=== PATIENT | female | born 1990 | race Caucasian/White ===

== ENCOUNTER → 2019-11-22 15:15 | Outpatient (CLI) | payer OTHER, SELFPAY ==
[2019-11-22 15:39] LABS: Add Manual Diff / Slide Review NO; Basophils Absolute Auto 100 /uL (0-100); Basophils Percent Auto 0.6 % (0-2); Eosinophils Absolute Auto 100 /uL (0-450); Eosinophils Percent Auto 0.9 % (2-4); Hematocrit 38.2 % (36-46); Hemoglobin 12.7 g/dL (12.0-16.0); Lymphocytes Absolute Auto 1800 /uL (1100-4500); Lymphocytes Percent Auto 18.4 % (25-40); Mean Corpuscular HGB Conc 33.3 % (30-36); Mean Corpuscular Hemoglobin 30.1 PG (26-34); Mean Corpuscular Volume 90.2 fL (80-100); Monocytes Absolute Auto 800 /uL (0-900); Monocytes Percent Auto 7.9 % (3-14); Neutrophils Absolute Auto 7200 /uL (1500-7000); Neutrophils Percent Auto 72.2 % (50-75); Platelet Count 363 X10^3/uL (150-400); Red Blood Cell Count 4.23 X10^6/uL (4.0-5.2); Red Cell Distribution Width 14.6 % (11.6-14.8)
[2019-11-22 15:46] LABS: Appearance Urine UA CLEAR; Bilirubin Urine UA NEGATIVE (NEGATIVE); Color Urine UA YELLOW; Glucose Urine UA NEGATIVE (Negative); Ketones Urine UA NEGATIVE (NEGATIVE); Leukocyte Esterase Urine UA NEGATIVE (NEGATIVE); Nitrite Urine UA NEGATIVE (Negative); Occult Blood Urine UA NEGATIVE (Negative); Protein Urine UA NEGATIVE (Negative); Urobilinogen Urine UA 0.2 E.U./dL (0.2)
[2019-11-23 08:39] LABS: RPR Screen Non Reactive (Non Reactive); Varicella IgG Antibody <135 index (Immune >165)
[2019-11-25 14:42] LABS: HIV 1 & 2 Ab/Ag 4th Gen Combo NEGATIVE (NEGATIVE); Hep C Virus Ab w/Reflex Quant NEGATIVE s/c (NEGATIVE); Hepatitis B Surface Antigen NEGATIVE s/c (NEGATIVE); Rubella Antibody IgG 10.1 IU/mL (>15)
== END ==
PROVIDERS: PCP Physician Assistant; Referring Provider Specialist; Visit Provider Specialist
DX: Z34.01 Encounter for supervision of normal first pregnancy, first trimester (principal)
CPT/HCPCS: 36415; 80055; 81003; 86787; 86803; 86850; 86900; 86901; 87086; 87389

== ENCOUNTER → 2020-01-24 15:11 | Outpatient (CLI) | payer OTHER, SELFPAY ==
[2020-01-28 20:39] LABS: Calc Gestational Age Ultrasound (.); Estriol, Free 1.03 ng/mL (.); Inhibin A, Dimeric 103.84 pg/mL (.); Inhibin A, MoM 0.72 (.); Maternal Ethnicity Caucasian (.); Maternal Weight 188 lbs (.); Number of Fetuses No (.); OSBR Risk 1 IN 5251 (.); Results Report (.); Test Results *Screen Negative* (.); hCG, MoM 1.29 (.); hCG, Serum 35173 mIU/mL (.)
== END ==
PROVIDERS: PCP Physician Assistant; Referring Provider Specialist; Visit Provider Specialist
DX: Z34.82 Encounter for supervision of other normal pregnancy, second trimester (principal); Z3A.17 17 weeks gestation of pregnancy
CPT/HCPCS: 36415; 82105; 82677; 84702; 86336

== ENCOUNTER → 2020-02-21 10:10 | Outpatient (CLI) | payer OTHER, SELFPAY ==
--- NOTE | 2020-02-21 10:11 | DI.US.S_ITS ---
PROCEDURE: US OB >= 14 WEEKS FETUS INDICATIONS: ANATOMY SCAN OUTSIDE/PRIOR DATING DATA: Last menstrual period (LMP): 09/19/19. LMP-based estimated date of delivery (ODALIS): 06/25/20. First dating scan (date and location): 02/21/20. Estimated date of delivery (ODALIS) from first dating scan: 07/02/20. TECHNIQUE: Real-time scanning was performed of the fetus, with image documentation and biometric measurements. COMPARISON: [facility], , OB >= 14 WEEKS FETUS, 01/24/2020, 14:49. FINDINGS: General: A single living intrauterine gestation is present. Presentation: Breech Placenta: Placental position is posterior, with inferior aspect of the placenta 2.1 cm above the internal cervical os Amniotic fluid index: 10.9 cm, normal range is 5-24 cm. heart rate: 147 beats per minute. Maternal cervical canal: 3.2 cm long. Normal lower limit is 2.5 cm. biometrics: Biparietal diameter: 20 weeks 2 days Head circumference: 21 weeks Abdominal circumference: 21 weeks 4 days Femur length: 21 weeks 4 days Estimated gestational age from initial scan: 22 weeks 1 day Composite gestational age from present scan: 21 weeks 1 day Estimated weight and percentile: 426 g; 15 percentile. Measurement variability for biometric dating: +/- 7 days from 14 weeks to 15 weeks 6 days gestation, +/- 10 days from 16 weeks to 21 weeks 6 days gestation, +/- 2 weeks from 22 weeks to 27 weeks 6 days gestation, +/- 3 weeks for 28 weeks gestation or later. weight reference: 4500 g or EFW >90/95% is considered macrosomia or large for gestational age. EFW <10% is small for gestational age. EFW 5% or less is considered intra-uterine growth restriction. Anatomic survey: Neuro: Ventricles are non-dilated at less than 10 mm. Cisterna magna is normal at 3-11 mm. Cerebellum is normal in size and morphology. Nuchal skin fold: Normal at less than 6 mm between 14-21 weeks gestational age. Face: Nose and lips, facial profile are normal. Spine: No evidence for spina bifida. Heart: 4-chambered heart is present, with normal ventricular outflow tracts. Diaphragm: Diaphragm is intact. Stomach: Left-sided stomach is present. Kidneys: No hydronephrosis. Normal is less than 5 mm in 2nd trimester, less than 7 mm in 3rd trimester. Cord: 3-vessel cord has orthotopic insertion. Bladder: Normal in size. Extremities: All 4 extremities identified. IMPRESSION: 1. Single living with a composite age of 21 weeks 1 day corresponding to ultrasound ODALIS 07/02/20. 2. Normal anatomic survey. Dictated by: Anatoliy Harmon [facility] Interpreted: Raul Lyle MD on 02/21/2020 at 11:29 Approved by: Raul Lyle M.D. on 02/21/2020 at 14:02
== END ==
PROVIDERS: PCP Physician Assistant; Referring Provider Specialist; Visit Provider Specialist
DX: Z34.82 Encounter for supervision of other normal pregnancy, second trimester (principal); Z3A.21 21 weeks gestation of pregnancy
CPT/HCPCS: 76811

== ENCOUNTER → 2020-03-20 12:12 | Outpatient (CLI) | payer OTHER, SELFPAY ==
[2020-03-20 14:18] LABS: Hematocrit 33.7 % (36-46); Hemoglobin 11.4 g/dL (12.0-16.0)
[2020-03-20 14:31] LABS: GTT (PREG) 1 Hour PP 50gm Dose 99 mg/dL (76-139)
== END ==
PROVIDERS: PCP Physician Assistant; Referring Provider Specialist; Visit Provider Specialist
DX: Z34.82 Encounter for supervision of other normal pregnancy, second trimester (principal)
CPT/HCPCS: 36415; 82950; 85014; 85018

== ENCOUNTER → 2020-06-02 10:55 | Outpatient (CLI) | payer OTHER, SELFPAY ==
[2020-06-03 14:22] LABS: Strep Grp B PCR POS for Grp B Strep
== END ==
PROVIDERS: PCP Physician Assistant; Visit Provider Obstetrics & Gynecology
DX: Z34.83 Encounter for supervision of other normal pregnancy, third trimester (principal); Z3A.36 36 weeks gestation of pregnancy
CPT/HCPCS: 87653

== ENCOUNTER 2020-06-18 10:27 | Observation (INO) | payer OTHER, SELFPAY ==
--- NOTE | 2020-06-18 11:03 | DI.US.S_ITS ---
PROCEDURE: US OB BIOPHYSICAL PROFILE INDICATIONS: NEGATIVE NST OUTSIDE/PRIOR DATING DATA: Last menstrual period (LMP): 09/19/19. LMP-based estimated date of delivery (ODALIS): 06/25/20 . First dating scan (date and location): 02/21/20. Estimated date of delivery (ODALIS) from first dating scan: 07/02/20 . TECHNIQUE: Real-time scanning was performed of the fetus for biophysical profile, with image documentation. Color and pulse Doppler interrogation was also performed of the umbilical artery near its insertion into the placenta. COMPARISON: [facility], US, US OB >= 14 WEEKS FETUS, 02/21/2020, 10:33. FINDINGS: General: A single living intrauterine gestation is present. Presentation: Vertex. Placenta: Placental position is left fundal , without previa. Amniotic fluid index: 11.5 cm, normal range is 5-24 cm. heart rate: 145 beats per minute. Maternal cervical canal: Not well seen at late stage of cm long. Estimated gestational age from initial scan: 38 weeks 0 days . Biophysical profile: Tone: 2 points. Movement: 2 points. Respiration: 2 points. Largest pocket of fluid: 2 points. IMPRESSION: 1. Living late 3rd trimester intrauterine . 2. Ultrasound biophysical profile is 8/8. Dictated by: Esteban Mckay M.D. on 06/18/2020 at 11:36 Approved by: Esteban Mckay M.D. on 06/18/2020 at 11:39
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
== END 2020-06-18 13:05 | disposition home or self-care (01) ==
PROVIDERS: Admitting Provider Specialist; PCP Physician Assistant; Referring Provider Specialist; Visit Provider Specialist
DX: O36.8330 Maternal care for abnormalities of the fetal heart rate or rhythm, third trimester, not applicable or unspecified (principal); Z3A.38 38 weeks gestation of pregnancy
CPT/HCPCS: 59025; 59050; 76819; G0378; G0379

== ENCOUNTER 2020-06-21 09:39 | Outpatient (CLI) | payer OTHER, SELFPAY ==
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
== END 2020-06-21 11:00 | disposition home or self-care (01) ==
LOC: OB 06-22 13:58
PROVIDERS: PCP Physician Assistant; Referring Provider Specialist; Visit Provider Specialist
DX: O36.8330 Maternal care for abnormalities of the fetal heart rate or rhythm, third trimester, not applicable or unspecified (principal); Z3A.38 38 weeks gestation of pregnancy
CPT/HCPCS: 59025; G0378; G0379

== ENCOUNTER 2020-06-25 01:00 | Inpatient (IN) | payer OTHER, SELFPAY ==
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
[2020-06-25 01:57] LABS: Add Manual Diff / Slide Review NO; Basophils Absolute Auto 100 /uL (0-100); Basophils Percent Auto 0.8 % (0-2); Eosinophils Absolute Auto 100 /uL (0-450); Eosinophils Percent Auto 1.7 % (2-4); Hematocrit 34.4 % (36-46); Hemoglobin 11.3 g/dL (12.0-16.0); Lymphocytes Absolute Auto 2100 /uL (1100-4500); Lymphocytes Percent Auto 26.2 % (25-40); Mean Corpuscular HGB Conc 32.9 % (30-36); Mean Corpuscular Volume 88.3 fL (80-100); Monocytes Absolute Auto 800 /uL (0-900); Monocytes Percent Auto 9.7 % (3-14); Neutrophils Absolute Auto 4800 /uL (1500-7000); Neutrophils Percent Auto 61.6 % (50-75); Platelet Count 330 X10^3/uL (150-400); Red Cell Distribution Width 14.1 % (11.6-14.8); White Blood Cell Count 7.8 X10^3/uL (4.5-11.0)
[2020-06-25 02:04] LABS: COVID19 -Nasal RAPID Negative (Negative)
[2020-06-25] MEDS: LACTATED RINGERS 1,000 ML 100 ML IV ×3 (02:37→17:14)
[2020-06-25] MEDS: PENICILLIN G POTASSIUM 5,000,000 UNIT in DEXTROSE 5% IN WATER 250 ML IV (02:37)
[2020-06-25 02:46] VITALS: BP 122/79
--- NOTE | 2020-06-25 04:26 | PM.OBPNLAB ---
Date/Time Date Patient Seen: 06/25/20 Time Patient Seen: 04:15 Pain Control Pain control: tolerating well Comments: Patient asleep. VSS. Pelvic Exam Comments: CE deferred Contractions Contractions on admission: irregular Pitocin rate (mU/min): 0 Contraction intensity: Mild Status status: Category l Heart Rate Baseline: 125 Monitor Accelerations: Present Monitor Decelerations: Absent Monitor Variability: Moderate Assessment and Plan Assessment: other Plan: begin patient augmentation Comments: RN unable to start pitocin d/t staffing. Discussed options w/ patiet who is open to misoprostil while waiting. 1 dose misoprostil SL ordered. Reassess in 4 hours or sooner, PRN.
[2020-06-25] MEDS: miSOPROStoL 100 MCG TABLET 50 MCG PO (04:30)
[2020-06-25] MEDS: PENICILLIN G POTASSIUM 3,000,000 UNIT/50 ML FROZ.PIGGY 100 UNIT IV ×5 (07:00→23:07)
[2020-06-25] MEDS: OXYTOCIN PREMIX 30 UNIT/500 ML PLAST..BAG IV (08:38)
[2020-06-25] MEDS: FENT 2MCG/ML BUPIV 0.125% EPI 200 MCG/100 ML PLAST..BAG 12 MCG EPIDURAL ×2 (16:45→21:46)
[2020-06-25] MEDS: ONDANSETRON 4 MG/2 ML INJ (22:34)
[2020-06-26] MEDS: PENICILLIN G POTASSIUM 3,000,000 UNIT/50 ML FROZ.PIGGY 100 UNIT IV (05:00)
[2020-06-26] MEDS: FENT 2MCG/ML BUPIV 0.125% EPI 200 MCG/100 ML PLAST..BAG 12 MCG EPIDURAL (05:40)
--- NOTE | 2020-06-26 06:51 | PM.OBPRVD ---
Events: Labor Augmentation (Pitocin) and Prolonged Rupture of Membrane (Over 27 hours) Labor & Delivery Delivery date: 06/26/20 Intrapartal events: Prolonged 2nd Stage > 2.5 hours (Over 3 hours) Delivery augmentation: pitocin Delivery monitor: external FHT and external uterine Route of delivery: vacuum extraction Indication for instrumentation: maternal exhaustion L&D Laceration Description: Periurethral - 1st Degree and Perineal - 1st Degree Delivery repair: chromic (3 0) Estimated blood loss (mL): 450 Anesthesia type: Epidural Narrative: Patient arrived on Labor and delivery after spontaneous rupture membrane at 3:30 p.m. on 06/25/2020. She did not go into labor and so she received 1 dose Cytotec orally. Pitocin was begun to augment labor. Patient received an epidural catheter for pain control. heart tones category 1 to category 2 throughout labor. The patient had prolonged 3rd stage and due to maternal exhaustion decision was made to do a vacuum assisted vaginal delivery. The vacuum was placed and the infant brought to the perineum with the 1st set of pushes. The was delivered over an intact perineum with the 2nd contraction. The viable female infant was placed on maternal abdomen. After the cord stopped pulsating the cord was clamped, cut, and cord bloods obtained. The placenta delivered spontaneously, intact, with 3 vessels. There were no cervical tears. There is a first-degree perineal tear and a right labial tear that were repaired with 3-0 chromic suture. Both infant and mother doing well. [place] Baby 1: gender: Female Presentation: vertex position: Right Occiput Anterior Placenta delivery description: Spontaneous cord vessel description: 3 Vessels score (1 min): 8 score (5 min): 9 Plan for aftercare: Routine care
[2020-06-26] MEDS: DERMOPLAST SPRAY 20% 60 ML 1 SPRAY TOP (08:57)
[2020-06-26] MEDS: IBUPROFEN 600 MG TABLET PO ×3 (08:58→22:42)
[2020-06-26] MEDS: DOCUSATE 100 MG CAPSULE PO (09:56)
[2020-06-26] MEDS: CITALOPRAM 10 MG TABLET 20 MG PO (09:56)
[2020-06-26] MEDS: PRENATAL VIT,CALC/IRON/FOLIC 1 TABLET 1 TAB PO (09:56)
[2020-06-26] MEDS: HYDROCODONE/ACET 5/325 TABLET 2 TAB PO ×3 (09:58→19:20)
[2020-06-27] MEDS: HYDROCODONE/ACET 5/325 TABLET 2 TAB PO ×3 (00:03→09:54)
[2020-06-27] MEDS: IBUPROFEN 600 MG TABLET PO (04:01)
[2020-06-27 06:41] LABS: Add Manual Diff / Slide Review NO; Basophils Absolute Auto 0 /uL (0-100); Basophils Percent Auto 0.2 % (0-2); Eosinophils Absolute Auto 200 /uL (0-450); Hematocrit 29.9 % (36-46); Lymphocytes Absolute Auto 2000 /uL (1100-4500); Lymphocytes Percent Auto 20.4 % (25-40); Mean Corpuscular HGB Conc 33.3 % (30-36); Mean Corpuscular Hemoglobin 29.5 PG (26-34); Mean Corpuscular Volume 88.6 fL (80-100); Monocytes Absolute Auto 700 /uL (0-900); Neutrophils Absolute Auto 7100 /uL (1500-7000); Neutrophils Percent Auto 70.4 % (50-75); Platelet Count 289 X10^3/uL (150-400); Red Blood Cell Count 3.38 X10^6/uL (4.0-5.2); Red Cell Distribution Width 14.4 % (11.6-14.8); White Blood Cell Count 10.1 X10^3/uL (4.5-11.0)
--- NOTE | 2020-06-27 08:40 | P.DS_ITS ---
Discharge Providers Provider Date of admission: 06/25/20 01:00 Discharge Date: 06/27/20 Primary care physician: Tayla Drake PA-C Consults: 06/25/20 01:40 Consult to Anesthesiology Urgent Comment: Consulting Provider: Anesthesiologist Reason for consultation: Epidural Has provider been notified: No 06/27/20 06:48 Consult to Director Vaccine Routine Comment: Discharge provider: Masha Jalloh MD Summary Hospital Course Date Patient Seen: 06/27/20 Time Patient Seen: 08:40 Procedures: Vacuum assisted vaginal delivery Hospital Course: This patient this is a 30-year-old now para 1 who presented at term with spontaneously ruptured membranes and a closed cervix. She was induced with oral Cytotec and transition to Pitocin. The patient progressed on the Pitocin protocol to fully dilated, and after 3.5 hours 2nd stage, underwent vacuum a ssisted vaginal delivery due to maternal exhaustion. A second-degree perineal laceration was repaired in the usual fashion, and there were no other intrapartum or immediate complications including no signs or symptoms of infection. The patient's recovery was uncomplicated, and she was discharged on day 1. Peripartum Data Infant Delivery Method: Assisted Delivery Laceration Description: Perineal - 2nd Degree complications: none 1: Gender: Female Disposition of : home Status at Discharge Cognitive/behavioral status at discharge: oriented Functional status at discharge: independent ambulation Overall status at discharge: patient is progressing back to baseline Time Spent with Patient Time attestation: Total time spent providing and/or coordinating discharge ser vices: Time spent: Less than 30 minutes Objective Labs Result Diagrams: 06/27/20 06:10 Labs: Laboratory Results - last 24 hr 06/27/20 06:10 WBC 10.1 RBC 3.38 L Hgb 10.0 L Hct 29.9 L MCV 88.6 MCH 29.5 MCHC 33.3 RDW 14.4 Plt Count 289 Neut % (Auto) 70.4 Lymph % (Auto) 20.4 L [place] % (Auto) 7.0 Eos % (Auto) 2.0 Baso % (Auto) 0.2 Neut # (Auto) 7100 H Lymph # (Auto) 2000 [place] # (Auto) 700 Eos # (Auto) 200 Baso # (Auto) 0 Exam Vital Signs (past 8 hours): 127/83, hr 77, t 98.2 F Narrative Exam Narrative: Patient reports feeling well this morning, moderate lochia, good pain control, well, ambulating, voiding, passing flatus, tolerating p.o., no PIH complaints. Patient is taking Motrin and Vicodin for pain control. Const General: cooperative, healthy appearing, comfortable and well developed Resp Effort & Inspection: normal respiratory effort Auscultation: clear to auscultation bilaterally Cardio Rate: regular rate Rhythm: regular rhythm GI Palpation: soft and No tender Other: Fundus firm, well below U External Female Exam: normal external appearance Discharge Plan Discharge Plan Patient Disposition: Home Discharge orders & Medications Prescriptions: New oxycodone 5 mg tablet 5 mg PO Q6H PRN (Reason: pain) Qty: 10 RF: 0 Continued prenat.vits,clarissa,hbj-ulwe-lhzht Tablet 1 tab PO DAILY RF: 0 citalopram 20 mg tablet 20 mg PO DAILY Qty: 30 RF: 6 Follow up/Referrals: Jane Blanco MD [Physician] - (please f/u w/ Dr. Blanco on @ 1:30pm) Diet/Activity/Treatments Diet: Regular Activity: Nothing in the vagina for 6 weeks. Avoid lifting more than 10 lb for 6 weeks. If you have increasing bleeding, fevers, chills, nausea, vomiting, h eadaches, visual changes, or any other symptoms or concerns, call or come to the emergency room. Skin/Wound/Dressing Care Report to your healthcare provider any signs of infection, such as:: chills, fever, night sweats, increased pain, unusual drainage and unusual redness Visit Report/Discharge Packet Instructions: Labor and Delivery, Vaginal Stand Alone Forms: Discharge: Care Discharge Data Primary Care Provider: Tayla Drake
[2020-06-27] MEDS: CITALOPRAM 10 MG TABLET 20 MG PO (08:48)
[2020-06-27] MEDS: DOCUSATE 100 MG CAPSULE PO (08:48)
[2020-06-27] MEDS: PRENATAL VIT,CALC/IRON/FOLIC 1 TABLET 1 TAB PO (08:48)
[2020-06-27 09:45] VITALS: BP 129/78; PULSE 78; RESP 17; TEMP 37
[2020-06-27 09:54] VITALS: TEMP 37.1
[2020-06-27] MEDS: MEASLES,MUMPS,RUBELLA VACC/PF 0.5 ML VIAL SUBCUT (09:57)
== END 2020-06-27 10:30 | disposition home or self-care (01) | DRG 807 ==
PROVIDERS: Specialist; Admitting Provider Nurse Practitioner Obstetrics & Gynecology; PCP Physician Assistant; Referring Provider Nurse Practitioner Obstetrics & Gynecology; Visit Provider Nurse Practitioner Obstetrics & Gynecology
DX: O42.12 Full-term premature rupture of membranes, onset of labor more than 24 hours following rupture (principal); Z37.0 Single live birth; O63.1 Prolonged second stage (of labor); O75.81 Maternal exhaustion complicating labor and delivery; O99.824 Streptococcus B carrier state complicating childbirth; Z3A.39 39 weeks gestation of pregnancy; O71.82 Other specified trauma to perineum and vulva; O70.0 First degree perineal laceration during delivery; Z11.59 Encounter for screening for other viral diseases
CPT/HCPCS: 01967; 36415; 59050; 59200; 59400; 84112; 85025; 86850; 86900; 86901; 87635; G0379; J2405; J2540; J2590

== ENCOUNTER → 2020-07-31 11:28 | Outpatient (CLI) | payer OTHER, SELFPAY ==
[2020-07-31 12:57] LABS: Clostridium Difficile Tox PCR Negative for C. diff
== END ==
PROVIDERS: PCP Physician Assistant; Referring Provider Specialist; Visit Provider Specialist
DX: R19.7 Diarrhea, unspecified (principal)
CPT/HCPCS: 87493

== ENCOUNTER → 2021-03-16 09:54 | Outpatient (CLI) | payer OTHER, SELFPAY ==
[2021-03-16 20:42] LABS: COVID19 - ORCAS (NP or Nasal) Negative (Negative)
== END ==
PROVIDERS: PCP Physician Assistant; Visit Provider Physician Assistant
DX: Z20.822 Contact with and (suspected) exposure to COVID-19 (principal)
CPT/HCPCS: U0003

== ENCOUNTER → 2024-12-04 09:49 | Outpatient (CLI) | payer OTHER, MEDICAID, SELFPAY ==
[2024-12-04 19:11] LABS: Add Manual Diff / Slide Review NO; Basophils Absolute Auto 0 /uL (0-100); Basophils Percent Auto 0.2 % (0-2); Eosinophils Absolute Auto 200 /uL (0-450); Eosinophils Percent Auto 3.6 % (2-4); Hematocrit 38.5 % (36-46); Hemoglobin 12.8 g/dL (12.0-16.0); Lymphocytes Absolute Auto 2000 /uL (1100-4500); Mean Corpuscular HGB Conc 33.3 % (30-36); Mean Corpuscular Hemoglobin 29.2 PG (26-34); Mean Corpuscular Volume 87.7 fL (80-100); Monocytes Absolute Auto 300 /uL (0-900); Monocytes Percent Auto 7.1 % (3-14); Neutrophils Absolute Auto 2100 /uL (1500-7000); Neutrophils Percent Auto 45.1 % (50-75); Platelet Count 304 X10^3/uL (150-400); Red Blood Cell Count 4.39 X10^6/uL (4.0-5.2); Red Cell Distribution Width 15.1 % (11.6-14.8); White Blood Cell Count 4.6 X10^3/uL (4.5-11.0)
[2024-12-04 19:30] LABS: Alanine Aminotransferase 23 IU/L (<35); Albumin 4.2 g/dL (3.5-5.0); Albumin Globulin Ratio 1.8 (1.0-2.8); Alkaline Phosphatase 50 U/L (38-126); Aspartate Aminotransferase 27 IU/L (14-36); BUN Creatinine Ratio 15.7 (6-22); Bilirubin Total 0.3 mg/dL (0.2-1.3); Blood Urea Nitrogen 11 mg/dL (7-17); Calcium 8.9 mg/dL (8.4-10.2); Carbon Dioxide 28 mmol/L (22-32); Chloride 103 mmol/L (98-107); Cholesterol 219 mg/dL (140-199); Estimated Glomerular Filt Rate > 60 mL/min (>60); Globulin 2.4 g/dL (1.7-4.1); Glucose 86 mg/dL (70-99); HDL Cholesterol 58 mg/dL (40-60); HEMOLYSIS < 15 (0-50); LDL Cholesterol Calculated 145 mg/dL (<100); Potassium 4.6 mmol/L (3.4-5.1); Sodium 135 mmol/L (137-145); Total Protein 6.6 g/dL (6.3-8.2); Triglycerides 78 mg/dL (35-150)
[2024-12-04 19:56] LABS: TSH w/ Reflex to FT4 2.67 uIU/mL (0.47-4.68)
== END ==
PROVIDERS: PCP Physician Assistant Medical; Visit Provider Physician Assistant Medical
DX: Z13.29 Encounter for screening for other suspected endocrine disorder (principal); Z13.0 Encounter for screening for diseases of the blood and blood-forming organs and certain disorders involving the immune mechanism; Z13.1 Encounter for screening for diabetes mellitus; Z13.6 Encounter for screening for cardiovascular disorders
CPT/HCPCS: 80053; 80061; 84443; 85025

== ENCOUNTER → 2025-05-06 15:01 | Outpatient (CLI) | payer OTHER, SELFPAY | PROVIDERS: PCP Physician Assistant Medical; Visit Provider Physician Assistant Medical | DX: R30.0 Dysuria (principal) | CPT/HCPCS: 87086 ==

== ENCOUNTER → 2025-06-09 08:59 | Outpatient (CLI) | payer OTHER, SELFPAY ==
[2025-06-09 19:14] LABS: Add Manual Diff / Slide Review NO; Hematocrit 38.4 % (36-46); Hemoglobin 13.0 g/dL (12.0-16.0); Lymphocytes Absolute Auto 1500 /uL (1100-4500); Mean Corpuscular HGB Conc 33.9 % (30-36); Mean Corpuscular Hemoglobin 29.0 PG (26-34); Mean Corpuscular Volume 85.6 fL (80-100); Platelet Count 316 X10^3/uL (150-400)
[2025-06-09 19:25] LABS: Alanine Aminotransferase 15 IU/L (<35); Albumin 4.5 g/dL (3.5-5.0); Albumin Globulin Ratio 1.6 (1.0-2.8); Alkaline Phosphatase 68 U/L (38-126); Blood Urea Nitrogen 9 mg/dL (7-17); Calcium 9.1 mg/dL (8.4-10.2); Carbon Dioxide 27 mmol/L (22-32); Chloride 103 mmol/L (98-107); Cholesterol 200 mg/dL (140-199); Estimated Glomerular Filt Rate > 60 mL/min (>60); Globulin 2.8 g/dL (1.7-4.1); Glucose 106 mg/dL (70-99); HDL Cholesterol 64 mg/dL (40-60); HEMOLYSIS 17 (0-50); Potassium 4.4 mmol/L (3.4-5.1); Sodium 136 mmol/L (137-145); Total Protein 7.3 g/dL (6.3-8.2); Triglycerides 110 mg/dL (35-150)
[2025-06-09 19:42] LABS: Hemoglobin A1C% w Est Avg Glu 5.2 % (4.0-6.0)
== END ==
PROVIDERS: PCP Physician Assistant Medical; Visit Provider Physician Assistant Medical
DX: Z13.6 Encounter for screening for cardiovascular disorders (principal); Z13.1 Encounter for screening for diabetes mellitus; Z13.0 Encounter for screening for diseases of the blood and blood-forming organs and certain disorders involving the immune mechanism; Z13.29 Encounter for screening for other suspected endocrine disorder
CPT/HCPCS: 80053; 80061; 83036; 85025

== ENCOUNTER → 2025-07-23 14:35 | Outpatient (CLI) | payer OTHER, SELFPAY ==
[2025-07-23 20:04] LABS: Hemoglobin A1C% w Est Avg Glu 5.2 % (4.0-6.0)
== END ==
PROVIDERS: PCP Physician Assistant Medical; Visit Provider Physician Assistant Medical
DX: D72.10 Eosinophilia, unspecified (principal); R73.9 Hyperglycemia, unspecified
CPT/HCPCS: 82785; 83036; 86003